=== PATIENT | female | born 1975 | race African-American/Black ===

== ENCOUNTER → 2021-04-22 14:54 | Outpatient (CLI) | payer OTHER, SELFPAY ==
--- NOTE | ~2021-04-22 | MM_ITS ---
EXAMINATION: MM screening [facility] HISTORY: Screening TECHNIQUE: Craniocaudal and mediolateral oblique 3-D tomosynthesis images were obtained and synthetic 2-D images were generated. CAD analysis was submitted and interpreted. COMPARISON: 08/01/2019 BREAST PARENCHYMAL COMPOSITION: There are scattered areas of fibroglandular density. FINDINGS: There is no evidence of suspicious mass, calcification, or architectural distortion to sugg est malignancy in either breast. There has been no suspicious interval change. IMPRESSION: 1. No mammographic evidence of malignancy. 2. Recommend routine screening mammography in one year. BI-RADS Category 1: Negative Reviewed, dictated and finalized at location A.
== END ==
DX: Z12.31 Encounter for screening mammogram for malignant neoplasm of breast (principal)
CPT/HCPCS: 77063; 77067

== ENCOUNTER → 2023-05-26 14:31 | Outpatient (CLI) | payer OTHER, SELFPAY ==
--- NOTE | ~2023-05-26 | US_ITS ---
Pelvic ultrasound. Clinical History: Abnormal uterine bleeding Technique: Realtime transabdominal and transvaginal scanning of the pelvis was performed. Color flow Doppler and Doppler spectral analysis were performed. Findings: The uterus is anteverted. The endometrial stripe has a thickness of 13 mm. Probable ill-de fined submucosal fibroid present measuring 1.5 cm in diameter. The right ovary measures 5.1 x 3.1 x 3.8 cm. Simple right ovarian cyst measures 3.5 cm in diameter. The left ovary is not visualized. No significant left ovarian or adnexal mass is seen. There is no evidence of free fluid in the cul de sac. Impression: 1.5 cm probable submucosal fibroid versus possibly endometrial polyp. 3.5 cm simple right ovarian cyst. Reviewed, dictated and finalized at [facility]. Impression: 1.5 cm probable submucosal fibroid versus possibly endometrial polyp. 3.5 cm simple right ovarian cyst.
== END ==
PROVIDERS: PCP Nurse Practitioner; Visit Provider Nurse Practitioner
DX: N93.8 Other specified abnormal uterine and vaginal bleeding (principal); N83.291 Other ovarian cyst, right side
CPT/HCPCS: 76830

== ENCOUNTER 2023-06-07 00:34 | Day surgery (SDC) | payer OTHER, SELFPAY ==
[2023-06-01 17:06] VITALS: BMI 53.0
--- NOTE | 2023-06-01 17:40 | PC.NURSE ---
Report to the Outpatient Waiting Room, entrance under the green pavilion located off [facility], at time _1300_ on date _06/07/23_. Planned Procedure Time: _1500. Time changes happen often and if your time is changed the preop area will call you the afternoon before. - You and your visitor will be asked to self-screen and do not enter if you have any COVID symptoms. - A mask is optional within the hospital at this time. Patients may have clear liquids (water, carbonated beverages, clear teas, apple juice) until 3 hours prior to surgery with a maximum of 20 ounces. - No food from midnight until time of surgery - Infants may have breast milk until 4 hours before surgery, formula 6 hours prior to surgery. - Children will be allowed to drink immediately following surgery. If applicable, please bring a bottle or sippy cup to assist with drinking. Juice, water, soda, and popsicles are readily available. For infants on formula, please bring formula the day of surgery. Pacifiers are allowed. Take the following medications with a SIP of water the morning of surgery: _levothyroxine, terbinafine, misoprostol____ DO NOT STOP ANY OF YOUR OTHER PRESCRIPTION MEDICATIONS PRIOR TO SURGERY ?EXCEPT THE FOLLOWING Medications to discontinue per physician ___vitamins, supplements Date to take last dose__06/04/23 Please no make-up, nail tajik, hairspray, perfume, deodorant, or body powder the day of surgery. No jewelry (including any body piercings) or valuables the day of surgery, leave them at home. Please take a shower or bath the night before, or the morning of, surgery with an antibacterial soap. Wear comfortable, loose fitting clothing. Children are encouraged to wear pajamas. - Jewelry must be removed prior to entering the operating room. Rings and piercings that are not removed may be cut off. - The hospital will not accept responsibility for valuables. - Please leave all valuables, including medications, at home the day of surgery. If you are going home after surgery, a licensed operator and truck driver must drive you home. - NO public transportation without another adult if you receive anesthesia. - We recommend that an adult stay with you for 24 hours following discharge. - We also recommend that you do not drive, make important decision, drink alcoholic beverages, or take any drugs that were not prescribed by your health care provider for at least 24 hours after your discharge time. For Pediatric surgeries, we recommend two adults accompany the child home. Follow any additional instructions given to you from your surgeon. If you or anyone in your household have experienced Covid symptoms in the past week, please notify your surgeon or the nurse liaison at the phone number below for possible testing. Telephone instructions given to Elida Alvarezand asked if any additional questions and then verbalized understanding. Patient advised to call surgeon office or pre surgery nurse liaison [phone] if any additional questions.
--- NOTE | 2023-06-07 11:09 | WPDHPUPDATE1 ---
History and Physical Update Update Date/Time: 06/07/23 11:09 History and Physical has been reviewed, including an updated exam of the patient. There are NO changes in the patient's condition. Risks, benefits, and alternatives have been discussed and questions answered. Patient agrees to proceed with procedure.
--- NOTE | 2023-06-07 11:09 | PM.HPGS ---
History of Present Illness History of Present Illness Consent: Risks, benefits, and alternatives have been discussed and questions answered. Patient agrees to proceed with procedure. Chief complaint: abnormal uterine bleeding and anemia Narrative: Elida Reyes is a 47 year old female with irregular and prolonged bleeding. Pelvic ultrasound reveals the uterus to have a 1.5cm submucosal fibroid versus an endometrial polyp. The hemoglobin was 7.9. The patient was started on iron replacement. It was recommended to undergo D&C hysteroscopy. Risks of infection, bleeding, perforation, and fluid imbalance are reviewed. Patient voices understanding and agrees to proceed. Review of Systems Review of Systems: not repeated day of surgery; patient states no changes in status [facility] Past Medical History Medical History (Updated 06/07/23 @ 11:16 by Dalila Manrique MD) HTN (hypertension) Hypothyroid (normal spontaneous vaginal delivery) Surgical History Surgical History (Updated 06/07/23 @ 11:13 by Dalila Manrique MD) History of History of carpal tunnel release Left History of endometrial ablation 2016 Social History Social History Smoking status: Never smoker Alcohol intake: current Substance use: current Substance use type: marijuana Living arrangements: with family Spiritual care concerns: No Meds Home Medications and Allergies Home Medications Medication Instructions Recorded Confirmed Type ferrous sulfate 325 mg (65 mg 325 mg PO DAILY 06/01/23 06/01/23 History iron) tablet (FeroSul) levothyroxine 175 mcg tablet 175 mcg PO DAILY 06/01/23 06/01/23 History misoprostol 200 mcg tablet 200 mcg PO DAILY 06/01/23 06/01/23 History semaglutide (weight loss) 2.4 2.4 mg subcut WEEKLY 06/01/23 06/01/23 History mg/0.75 mL subcutaneous pen injector terbinafine HCl 250 mg tablet 250 mg PO DAILY 06/01/23 06/01/23 History Allergies Allergy/AdvReac Type Severity Reaction Status Date / Time Penicillins Allergy Severe Swelling Verified 06/01/23 17:30 furosemide Allergy Swelling Verified 06/01/23 17:29 hydrochlorothiazide Allergy Swelling Verified 06/01/23 17:29 pregabalin Allergy Swelling Verified 06/01/23 17:29 Exam Const: General: alert and obese (BMI of 55.5 weighing 352lb) Orientation/consciousness: patient oriented x3 Resp: Effort & Inspection: normal respiratory effort GI: GI Palp: Yes Soft to palpation, No Tenderness to palpation present (GI) and No Palpable mass present : External Female Exam: normal external appearance Speculum Exam - Vagina: normal appearance of the vagina and normal vaginal discharge Speculum Exam - Cervix: normal appearance of the cervix Bimanual exam- vagina & uterus: other (Suboptimal exam secondary to pannus) Bimanual Exam- Adnexa, other: No adnexal tenderness Neuro: General: patient oriented x3 Assessment and Plan Assessment and plan (1) Menometrorrhagia: Code(s): N92.1 - Excessive and frequent menstruation with irregular cycle Status: Acute (2) Anemia: Code(s): D64.9 - Anemia, unspecified Status: Acute (3) Fibroids, submucosal: Code(s): D25.0 - Submucous leiomyoma of uterus Status: Acute Assessment and Plan: Plan to proceed with D&C hysteroscopy possible myomectomy
--- NOTE | 2023-06-07 12:43 | P.PNAN_ITS ---
Anes - Initial Pre Proc Eval Procedure: Operation Date: 06/07/23 14:15 Proposed Procedures p Hysteroscopy Dilation and Curettage - Dalila Manrique MD Date/Time: 06/07/23 12:43 Surgeon: Dalila Manrique MD Pre Op Diagnosis: abnormal uterine bleeding and anemia Patient Data Age: 47 Gender: F Height: 1.68 m Weight: 149 kg Allergies Allergy/AdvReac Type Severity Reaction Status Date / Time Penicillins Allergy Severe Swelling Verified 06/01/23 17:30 furosemide Allergy Swelling Verified 06/01/23 17:29 hydrochlorothiazide Allergy Swelling Verified 06/01/23 17:29 pregabalin Allergy Swelling Verified 06/01/23 17:29 Home Medications Medication Instructions Recorded Confirmed Type ferrous sulfate 325 mg (65 mg 325 mg PO DAILY 06/01/23 06/01/23 History iron) tablet (FeroSul) levothyroxine 175 mcg tablet 175 mcg PO DAILY 06/01/23 06/01/23 History misoprostol 200 mcg tablet 200 mcg PO DAILY 06/01/23 06/01/23 History semaglutide (weight loss) 2.4 2.4 mg subcut WEEKLY 06/01/23 06/01/23 History mg/0.75 mL subcutaneous pen injector terbinafine HCl 250 mg tablet 250 mg PO DAILY 06/01/23 06/01/23 History Patient hx anesthesia problems: none Family hx anesthesia problems: none Results Review: All pre-operative results and documents have been reviewed as part of the pre- operative evaluation. [facility] Past Medical History Medical History (Updated 06/07/23 @ 11:16 by Dalila Manrique MD) HTN (hypertension) Hypothyroid (normal spontaneous vaginal delivery) Surgical History Surgical History (Updated 06/07/23 @ 11:13 by Dalila Manrique MD) History of History of carpal tunnel release Left History of endometrial ablation 2017 Social History Social History Smoking status: Never smoker Alcohol intake: current Substance use: current Substance use type: marijuana Living arrangements: with family Spiritual care concerns: No Anes - Eval Final PreProcedure Day of Procedure 06/07/23 12:43 Patient weight: super morbidly obese Heart: regular rate and rhythm Lungs: clear to auscultation Airway: Mallampati scale class III Neurological: alert and oriented Last oral intake: >/= 8 hours ASA classification: III Emergent: no Anesthetic plan: proceed Anesthesia type and monitoring: general GIVS and standard monitoring Results Review: All pre-operative results and documents have been reviewed as part of the pre- operative evaluation. Informed Consent: The patient's anesthetic plan and its attendant risks and benefits were discussed with the patient/family/POA. Questions were solicited and answers provided to the satisfaction of the patient/family/POA.
[2023-06-07] MEDS: ACETAMINOPHEN 500 MG TABLET 1000 MG PO (13:20)
[2023-06-07 13:45] VITALS: BP 144/98; PULSE 72; RESP 14; TEMP 36.6; O2SAT 100
[2023-06-07] MEDS: LACTATED RINGERS 1,000 ML 30 ML IV CONT (13:49)
[2023-06-07] MEDS: KETOROLAC 30 MG/ML VIAL (*BKC) IV PUSH (14:20)
--- NOTE | 2023-06-07 15:00 | P.OP_ITS ---
Procedure Note - Detailed Date of Procedure 06/07/23 Pre-op Diagnosis abnormal uterine bleeding and anemia possible submucosal fibroid Post-op Diagnosis Same (Submucosal fibroid) Procedure Performed Hysteroscopic myomectomy with D&C Surgeon Dalila Manrique MD Anesthesia MAC Findings The cervix has no resistance when sounding. The uterus sounds to 9cm. There was a large fibroid in the right upper half of the uterus. No other abnormalities are noted. Description of Procedure The patient is taken to the operating room and placed under anesthesia in the dorsal lithotomy position. The bivalve speculum was placed in the vagina and the cervix grasped on the anterior lip with a tenaculum. The uterus is sounded to 9cm. The cervix had no resistance therefore the large Aveeta hysteroscope was placed without dilating. It passed without difficulty. The tenaculum was replaced and I tried to close the external cervical os around the hysteroscope with a tenaculum. The above-stated findings were noted therefore the large resection device is opened and placed approximately 1/2 of the fibroid is removed and the handpiece broke. Second device was opened and placed and the remainder of the fibroid is removed leaving a small portion. Visualization be came poor with bleeding in the cavity. The hysteroscope was removed. The myoma graspers were used to remove the remainder of the fibroid in pieces. The hysteroscope was replaced and although poor visualization was noted it appeared that the majority if not all of the fibroid was removed. The sharp curette was then used to curette the endometrium until there was a good uterine cry noted in all areas. All instruments are removed. Sponge, needle, and instrument counts are correct per the OR staff. Patient was awakened from anesthesia and taken to recovery in stable condition. Estimated Blood Loss 50 Drains No Packing No Pathology Yes (Endometrial shavings, curettings, fibroid pieces) Complications No immediate complications Condition Stable Disposition PACU
[2023-06-07 15:01] VITALS: BP 157/100; PULSE 81; RESP 12
[2023-06-07 15:30] VITALS: BP 150/90; PULSE 71; RESP 20
[2023-06-07 16:00] VITALS: BP 156/88; PULSE 66; RESP 20
== END 2023-06-07 16:15 | disposition home or self-care (01) ==
PROVIDERS: PCP Hospitalist; Visit Provider Obstetrics & Gynecology Gynecology
PROC: 0U5B8ZZ Destruction of Endometrium, Via Natural or Artificial Opening Endoscopic (ICD-10-PCS; CPT 58563; principal; 2023-06-07 14:15)
DX: D25.0 Submucous leiomyoma of uterus (principal); N92.1 Excessive and frequent menstruation with irregular cycle; D64.9 Anemia, unspecified; I10 Essential (primary) hypertension; E03.9 Hypothyroidism, unspecified; F12.90 Cannabis use, unspecified, uncomplicated; E66.01 Morbid (severe) obesity due to excess calories; Z68.43 Body mass index [BMI] 50.0-59.9, adult; Z79.85 Long-term (current) use of injectable non-insulin antidiabetic drugs
CPT/HCPCS: 58561; 88305; A9270; J1885; J2250; J2704; J3010; J7030; J7120